=== PATIENT | female | born 1970 | race Two or more races ===

== ENCOUNTER 2018-04-23 21:04 | Emergency (ER) | payer BC ==
[~2018-04-23] VITALS: Ht 162.6 cm; Wt 63.5 kg
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
[2018-04-23] MEDS ORDERED: KETOROLAC TROMETHAMINE 60 MG INJ IM ONE ×2 (22:30→22:32)
[2018-04-23] MEDS ORDERED: HYDROCODONE/APAP 5-325MG TABLET PO ONE (22:30)
[2018-04-23] MEDS ORDERED: HYDROCODONE/APAP 5-325MG TABLET ONE (22:32)
--- NOTE | 2018-04-23 22:40 | NUR ---
PT IN ROUTE TO CT IN WHEELCHAIR WITH TRANSPORTER
--- NOTE | 2018-04-23 22:51 | NUR ---
PT RETURNS FROM CT IN WHEELCHAIR WITH TRANSPORTER
[2018-04-23 23:43] LABS: *BILIRUBIN,URIN NEGATIVE (NEGATIVE); *BLOOD, URINE Trace-intact (NEGATIVE); *CLARITY,URINE SLIGHTLY CLOUDY (CLEAR); *COLOR,URINE LIGHT YELLOW (YELLOW); *KETONES,URINE NEGATIVE (NEGATIVE); *PROTEIN,URINE NEGATIVE (NEGATIVE); LEUKOCYTE ESTERASE ,URINE NEGATIVE (NEGATIVE); NITRITE, URINE NEGATIVE (NEGATIVE); PH,URINE 7.5 (5.0-8.0); UGLUCOSE NEGATIVE (NEGATIVE)
[2018-04-23 23:44] LABS: *URINE HCG, QUAL NEGATIVE (NEGATIVE)
[2018-04-23 23:49] LABS: BACTERIA,URINE NONE SEEN /HPF (NONE SEEN); RBC,URINE 0-3 /HPF (0-3); SQUAMOUS EPITHELIAL CELL,UR MODERATE /HPF (NONE SEEN); URINE AMORPHOUS PHOSPHATES MANY /HPF; WBC,URINE 0-3 /HPF (0-3)
--- NOTE | 2018-04-24 01:15 | NUR ---
Note tima in ED - 04/24/18 at 0134 by JAZMINE Patient discharged to home in stable conditon. Patient reported being free free prior to discharge. Written and verbal after care instructions given. Patient verbalizes understanding of instructions. Patient able to ambulate unassisted with a steady gait. Patient left with all personal belongings.
--- NOTE | 2018-04-24 01:15 | NUR ---
Patient discharged to home in stable conditon. Patient reported being pain free prior to discharge. Written and verbal after care instructions given. Patient verbalizes understanding of instructions. Patient able to ambulate unassisted with a steady gait. Patient left with all personal belongings.
[2018-04-24 01:36] VITALS: BP 111/64
== END 2018-04-24 01:15 | disposition home or self-care (01) ==
LOC: ER 21:06
DX: S16.1XXA Strain of muscle, fascia and tendon at neck level, initial encounter (principal); M79.604 Pain in right leg; M79.641 Pain in right hand; M25.551 Pain in right hip; F17.200 Nicotine dependence, unspecified, uncomplicated; V43.52XA Car driver injured in collision with other type car in traffic accident, initial encounter; Y93.89 Activity, other specified; Y99.8 Other external cause status; Y92.410 Unspecified street and highway as the place of occurrence of the external cause
CPT/HCPCS: 72125; 73100; 73120; 81001; 84703; 96372; 99285; A4663; J1885